=== PATIENT | female | born 1945 | race Caucasian/White ===

== ENCOUNTER → 2016-03-09 | Outpatient (CLI) | payer OTHER, BC | LOC: MMPC 09:00 | PROVIDERS: ATTEND Nurse Practitioner Family | DX: I10 Essential (primary) hypertension (principal) | CPT/HCPCS: 99213; G0463 ==

== ENCOUNTER → 2016-05-12 | Outpatient (CLI) | payer OTHER, BC | LOC: MMPC 09:00 | PROVIDERS: ATTEND Nurse Practitioner Family | DX: M81.0 Age-related osteoporosis without current pathological fracture (principal) | CPT/HCPCS: G0463; J0897 ==

== ENCOUNTER → 2016-06-03 | Outpatient (CLI) | payer OTHER, BC | LOC: MMPC 09:00 | PROVIDERS: ATTEND Nurse Practitioner Family | DX: I10 Essential (primary) hypertension (principal); B00.1 Herpesviral vesicular dermatitis | CPT/HCPCS: 99213; G0463 ==

== ENCOUNTER → 2016-07-06 | Outpatient (CLI) | payer OTHER, BC ==
--- NOTE | 2016-07-06 13:11 | DI ---
CT BONE DENSITOMETRY OF THE SPINE AND HIP, 07/06/2016 8:25 AM : Clinical History: Osteopenia. Previous Exam: July 01, [address] (QCT) Bone Mineral Densitometry: The [place] scans are normal. Low dose scans are obtained of the lumbar spine and sampling is obtaine d through the midbodies of L1 and L2. The average volumetric bone mineral density (BMD) of the lumbar spine is 171.0 mg/cm3. This value corresponds to a volumetric T-score of 0.1 and Z-score of 3.2 as a ssessed by this BMD software. Volumetric 3D QCT and areal DEXA T-scores and Z-scores are not directly equivalent. Using the [employer]'s (ACR) volumetric QCT trabecular spine BMD conv ersion table that is closely equivalent to the areal WHO diagnostic categories, this patient falls in to the category of normal bone mineral density. CT X-Ray Absorptiometry (CTXA) Hip Bone Mineral Densitometry: Low dose scans are obtained through the hips for assessment of bone mineral density (BMD) and T-score s and Z-scores of the left hip. Total hip BMD: 0.945 mg/cm2 T-score: 0.2 Z-score: Femoral neck BMD: 0.780 mg/cm2 T-score: -0.1 Z-score: Note: T-scores of the spine and hip exhibit discordant readings approximately 40% of the time in eval uated patients. Changes in BMD determined either by volumetric QCT or areal DEXA are more reliable in assessment of change in a patient's BMD status rather than changes in T-scores. The CTXA hip CT bone mineral density measurements and the resultant T-scores and Z-scores are exact hip DEXA scan equival ents. The femoral neck T-score can be used in the WHO's FRAX program for assessing an untreated patie nt's 10 year fracture risk. READING: Normal bone mineral density of the lumbar spine and left hip.
== END ==
LOC: CT 08:20
PROVIDERS: ATTEND Nurse Practitioner Family
DX: M85.80 Other specified disorders of bone density and structure, unspecified site (principal)
CPT/HCPCS: 77078